=== PATIENT | male | born 1975 | race Caucasian/White ===

== ENCOUNTER 2016-12-15 08:09 | Day surgery (SDC) | payer BC ==
[~2016-12-15] VITALS: Ht 177.8 cm; Wt 102.0 kg
--- NOTE | ~2016-12-15 | OR ---
PATIENT'S NAME: WALE LANCASTERIEL Hannah [facility] AGE: 41 Y [address] ROOM: [place] [address] LOCATION: [facility] [place] ADMIT DATE: 12/15/2016 OR/Procedure Report DISCHARGE DATE: FAMILY PHYSICIAN: Matthew North MD ATTENDING PHYSICIAN: ALLA VALVERDE SURGEON: Alla Valverde MD HEADER SET UP OPERATOR: Giacomo Wiseman, ENT Resident PGY5 DATE OF PROCEDURE: 12/15/2016 PREOPERATIVE DIAGNOSIS: Multinodular goiter. POSTOPERATIVE DIAGNOSIS: Multinodular goiter. PROCEDURE: 1. Total thyroidectomy. 2. NIM recurrent laryngeal nerve monitoring for 2.5 hours. ANESTHESIA: General endotracheal. COMPLICATIONS: None. BLOOD LOSS: 75 mL. FINDINGS: Significantly enlarged left thyroid lobe. Moderately enlarged right thyroid lobe. Recurrent laryngeal nerve identified and stimulated intact at the conclusion of the case on the left side. Recurrent laryngeal nerve left down within the wound and not identified at the conclusion of the case on the right side. INDICATION: The patient is a 41-year-old male with a strong family history of thyroid cancer, who presented with multinodular and enlarged goiter. We discussed the various management strategies and he elected for surgical management. We discussed the risks, benefits, and alternatives, and he provided informed consent. DESCRIPTION OF PROCEDURE: The patient was brought to the preoperative area and thereafter to the operative suite and placed on the table in a supine position. All pressure points were padded. A time-out was performed correctly identifying the patient and the procedure. General endotracheal anesthesia was initiated. The neck was extended with a shoulder roll and marked and, thereafter, injected with 1% lidocaine with epinephrine. The neck was prepped and draped in the usual sterile fashion. The NIM monitor was attached and tested. Incision was made with a #15 blade and carried down through the subcutaneous tissues with cautery and thereafter into the subplatysmal plane. Superior and inferior subplatysmal flaps were elevated. The strap muscles were PATIENT'S NAME: JOSE J LANCASTER [facility] AGE: 41 Y [address] ROOM: [place] [address] LOCATION: [facility] [place] ADMIT DATE: 12/15/2016 OR/Procedure Report DISCHARGE DATE: FAMILY PHYSICIAN: Matthew North MD ATTENDING PHYSICIAN: ALLA VALVERDE identified and divided in the midline down to the level of the thyroid. We began with dissection of the left thyroid lobe which was significantly enlarged and hypervascular. Once this was dissected out, the inferior and superior pole vessels were taken down. The lobe was elevated out of the wound, and careful dissection was performed on the Brock ligament area. Superior and inferior parathyroids were identified and left intact. The recurrent laryngeal nerve was identified, stimulated intact, and left down in the wound. Careful dissection was performed to remove the thyroid from Brock ligament and, thereafter, this was dissected in the midline and sent for permanent specimen. We then turned our attention to the right thyroid lobe which was dissected in the same manner. However, this was a much smaller lobe. The inferior parathyroid gland was identified and left in the wound, superior gland was not identified. The recurrent laryngeal nerve was not identified during dissection of Brock's despite careful [id number] dissection. Several attempts were made to find the nerve and identify its pathway. However, due to concern that this may accidentally traumatize the nerve which did not appear to be running along the gland itself before removal, these attempts of finding it were abandoned. The wound was irrigated. Spot hemostasis was achieved with bipolar. A drain was placed. The strap muscles were closed in the midline with Vicryl sutures and thereafter Vicryl sutures for the deep skin. 5-0 Prolene was then placed in a running horizontal mattress for the skin layer, followed by dressing. The patient tolerated the procedure well, was extubated, and transferred to the recovery room in stable condition. MD [place]/arminl /[id number] d: 12/15/16 1857 t: 01/05/17 1149, OPERATIVE SUMMARY
[~2016-12-15 08:09] MED LIST: HYDRODIURIL12.5 MG PO; PRINIVIL (ZESTR20 MG PO; SYMBICORT 16010.2 GM INH
[2016-12-15] MEDS ORDERED: THERA-VITE W/ B1 TAB PO (08:59)
[2016-12-16] MEDS ORDERED: BACITRACIN1 PKT TOP (11:33)
[2016-12-16] MEDS ORDERED: NORCO 5-325 TA1 EACH PO (11:34)
[2016-12-16] MEDS ORDERED: LEVOTHROID (S125 MCG PO (11:35)
== END 2016-12-16 16:05 | disposition disaster alternative care site (69) ==
LOC: GMSU 08:09 → GSDC 08:09 → GMSU 08:15 → GSDC 12-16 16:05
PROC: 0GTK0ZZ Resection of Thyroid Gland, Open Approach (ICD-10-PCS; principal; 2016-12-15)
DX: E04.2 Nontoxic multinodular goiter (principal); I10 Essential (primary) hypertension; J45.909 Unspecified asthma, uncomplicated; G47.30 Sleep apnea, unspecified; Z96.651 Presence of right artificial knee joint; Z98.890 Other specified postprocedural states; Z88.8 Allergy status to other drugs, medicaments and biological substances
CPT/HCPCS: J2001; J2270; J2405; J2550; J3010; J7030